=== PATIENT | female | born 1990 | race Caucasian/White ===

== ENCOUNTER 2018-06-07 17:18 | Emergency (ER) | payer SELFPAY ==
[2018-06-07 17:23] VITALS: BMI 23.0
[2018-06-07 17:26] VITALS: RESP 18; TEMP 98.4; O2SAT 99
[2018-06-07 20:44] LABS: BASO # 0.01 K/mm3 (0.0-2.0); BASO % 0.1 % (0.0-3.0); EOS # 0.3 (0.0-0.7); EOS % 3.7 % (1.5-5.0); GRAN # 4.12 (1.4-6.5); GRAN % 52.5 % (50.0-68.0); HEMOGLOBIN 12.5 g/dL (12.0-16.0); LYMPH # 2.8 (1.2-3.4); LYMPH % 35.7 % (22.0-35.0); MEAN CORPUSCULAR HGB CONC 32.2 g/dl (31.0-37.0); MEAN PLATELET VOLUME 10.7 fl (7.0-11.0); MONO # 0.6 (0.1-0.6); RBC 4.46 10^6/uL (3.5-6.1); RED CELL DISTRIBUTION WIDTH 12.8 % (11.5-14.5); WHITE BLOOD COUNT 7.9 10^3/uL (4.5-11.0)
[2018-06-07 20:45] LABS: PH,URINE 6.5 (4.7-8.0); URINE BILIRUBIN NEGATIVE (NEGATIVE); URINE BLOOD MODERATE (NEGATIVE); URINE GLUCOSE (UA) NEGATIVE (NEGATIVE); URINE LEUKOCYTE ESTERASE NEGATIVE Leu/uL (NEGATIVE); URINE PROTEIN NEGATIVE mg/dL (<30 mg/dL); URINE UROBILINOGEN 0.2 E.U./dL (<1 E.U./dL)
--- NOTE | 2018-06-07 20:45 | ED PDOC ---
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 Patient notes right sided breast pain for the past few weeks. Patient notes nausea, weakness and headache since today. Patient notes she has the urge to vomit, but does not. Patient states she had diarrhea on 06/03/18 and notes mild chills. Patient denies any vomiting, fevers, or any other complaints. Patient currently has her menstrual cycle, noting it started yesterday. Time/Duration: < week (Patient notes intermittent abdominal pain and right sided breast pain for past approximately 3 weeks ), Other (Pt notes nausea,weakness, and headache since today ) Symptom Onset: Sudden Symptom Course: Unchanged Activities at Onset: Light Past Medical History - Provider Review Nursing Documentation Reviewed: Yes - Infectious Disease Hx of Infectious Diseases: None - Psychiatric Hx Substance Use: No - Surgical History Hx Dilation and Curettage: Yes - Anesthesia Hx Anesthesia: Yes Hx Anesthesia Reactions: No Hx Malignant Hyperthermia: No Family/Social History - Physician Review Nursing Documentation Reviewed: Yes Family/Social History: No Known Family HX Smoking Status: Never Smoked Hx Alcohol Use: No Hx Substance Use: No Allergies/Home Meds Allergies/Adverse Reactions: Allergies No Known Allergies Allergy (Verified 06/07/18 17:22) Review of Systems - Physician Review All systems were reviewed & negative as marked: Yes - Review of Systems Constitutional: Fatigue, Night Sweats (pt notes mild chills). absent: Normal, Fevers Gastrointestinal: Abdominal Pain (Pt notes intermittent burning abdominal pain), Diarrhea (pt notes she had diarrhea on 06/03/18), Nausea. absent: Normal, Vomiting Neurological: Headache. absent: Normal Physical Exam Vital Signs Reviewed: Yes Vital Signs Temp Pulse Resp BP Pulse Ox 06/07/18 17:26 98.4 F 74 18 117/82 99 Temperature: Afebrile Blood Pressure: Normal Pulse: Regular Respiratory Rate: Normal Appearance: Positive for: Well-Appearing, Non-Toxic, Comfortable Pain Distress: Mild Mental Status: Positive for: Alert and Oriented X 3 - Systems Exam Head: Present: Atraumatic, Normocephalic Pupils: Present: PERRL Extroacular Muscles: Present: EOMI Conjunctiva: Present: Normal Mouth: Present: Moist Mucous Membranes Neck: Present: Normal Range of Motion Respiratory/Chest: Present: Clear to Auscultation, Good Air Exchange. No: Respiratory Distress, Accessory Muscle Use Cardiovascular: Present: Regular Rate and Rhythm, Normal S1, S2. No: Murmurs Abdomen: Present: Tenderness (TTP of epigastrium ) Genitourinary/Pelvic Exam: Present: Other (TTP of superpubic region) Back: Present: Normal Inspection Upper Extremity: Present: Normal Inspection. No: Cyanosis, Edema Lower Extremity: Present: Normal Inspection. No: Edema Neurological: Present: GCS=15, CN II-XII Intact, Speech Normal Skin: Present: Warm, Dry, Normal Color. No: Rashes Psychiatric: Present: Alert, Oriented x 3, Normal Insight, Normal Concentration Medical Decision Making ED Course and Treatment: 06/07/18 19:15 Impression: 27 year old female presents for intermittent burning abdominal pain for the past 3 weeks. Plan: -- Labs -- Toradol -- Urinalysis -- POC Urine test -- Pelvic US Progress notes: 06/07/18 20:47 Tech called back, pelvic ovaries are well visualized and normal endometrial stripe seen on US. US is negative. - RAD Interpretation Radiology Orders: 06/07/18 19:50 TRANSVAGINAL [US] Stat - Medication Orders Current Medication Orders: Discontinued Medications Ketorolac Tromethamine (Toradol) 30 mg IVP STAT STA Stop: 06/07/18 19:26 - Scribe Statement The provider has reviewed the documentation as recorded by the Scribe Subha Bailey All medical record entries made by the Scribe were at my direction and personally dictated by me. I have reviewed the chart and agree that the record accurately reflects my personal performance of the history, physical exam, medical decision making, and the department course for this patient. I have also personally directed, reviewed, and agree with the discharge instructions and disposition. Disposition/Present on Arrival - Present on Arrival Any Indicators Present on Arrival: No History of DVT/PE: No History of Uncontrolled Diabetes: No Urinary Catheter: No History of Decub. Ulcer: No History Surgical Site Infection Following: None - Disposition Have Diagnosis and Disposition been Completed?: Yes Diagnosis: Premenstrual syndrome Disposition: HOME/ ROUTINE Disposition Time: 21:28 Patient Plan: Discharge Condition: STABLE Discharge Instructions (ExitCare): Premenstrual Syndrome (PMS) and Premenstrual Dysphoric Disorder (PMDD) Print Language: SLOVENIAN Additional Instructions: All medical record entries made by the Scribe were at my direction and personally dictated by me. I have reviewed the chart and agree that the record accurately reflects my personal performance of the history, physical exam, medical decision making, and the department course for this patient. I have also personally directed, reviewed, and agree with the discharge instructions and disposition. Please use Motrin every SIX hours with FOOD for pain Please follow up with your PCP in 1 week Prescriptions: Ibuprofen [Motrin] 600 mg PO Q6H #12 tab Referrals: Klaudia Bustos MD [Medical Doctor] - Follow up with primary [facility] [place] [Outside] - Follow up with primary Forms: [employer] ([place]), WORK NOTE
[2018-06-07 20:50] LABS: URINE APPEARANCE CLEAR (CLEAR); URINE COLOR LIGHT YELLOW (YELLOW)
[2018-06-07 20:53] LABS: ALB/GLOB RATIO 1.4 (1.1-1.8); ALBUMIN 4.6 g/dL (3.0-4.8); ALT/SGPT 31 U/L (7-56); AST/SGOT 28 U/L (14-36); BLOOD UREA NITROGEN 9 mg/dL (7-21); CALCIUM 9.8 mg/dL (8.4-10.5); GFR NON-AFRICAN AMERICAN > 60; LIPASE 41 U/L (23-300)
[2018-06-07 21:06] LABS: URINE BACTERIA SMALL /hpf; URINE EPITHELIAL CELLS 0 - 2 /hpf (0-5)
[2018-06-07 21:25] VITALS: PULSE 66
[2018-06-07 21:48] VITALS: BP 105/61
--- NOTE | 2018-06-08 08:56 | US ---
Date of service: 06/07/2018 HISTORY: h/o molar w/ pelvic pain COMPARISON: None available. TECHNIQUE: Transabdominal only FINDINGS: UTERUS: Measures 7.3 x 2.6 x 3.6 cm. Normal in size and appearance. No fibroid or other mass lesion seen. ENDOMETRIUM: Measures 2 mm in diameter. CERVIX: No cervical abnormality identified. RIGHT OVARY: Measures 2.0 x 1.7 x 1.9 cm. No solid mass. Normal flow. LEFT OVARY: Measures 2.2 x 1.3 x 2.0 cm. No solid mass. Normal flow. FREE FLUID: No significant free fluid noted. OTHER FINDINGS: None. IMPRESSION: Unremarkable pelvic ultrasound.
== END 2018-06-07 21:31 | disposition home or self-care (01) ==
LOC: MERGE 17:18 → ED 17:18
DX: N94.3 Premenstrual tension syndrome (principal)